=== PATIENT | male | born 1960 | race African-American/Black ===

== ENCOUNTER 2016-03-30 15:27 | Inpatient (IN) | payer MEDICARE, MEDICAID ==
[~2016-03-30] VITALS: Ht 162.6 cm; Wt 66.7 kg
[~2016-03-30 15:27] MED LIST: CYCL7.5T25 PO; FOLI0.8T; INSLAN SQ; INSLIS SQ; METF500T PO; abilify; insulin
[2016-03-30] MEDS ORDERED: SODIUM CHLORIDE 0.9% 1,000 ML IV ONE (17:01)
[2016-03-30] MEDS ORDERED: KETOROLAC 30MG/ML VIAL IV ONE (17:15)
[2016-03-30 17:18] LABS: BASOPHILS % 0.4 % (0.0-2.0); EOSINOPHILS % 4.3 % (0.0-5.0); HEMATOCRIT. 25.8 % (42.0-52.0); LYMPHOCYTES % 17.8 % (20.0-50.0); MEAN CORPUSCULAR HGB CONC 34.9 g/dL (31.0-37.0); MEAN CORPUSCULAR VOLUME 83.3 fL (80.0-94.0); MEAN PLATELET VOLUME 8.8 fl (7.4-10.4); MONOCYTES % 7.9 % (2.0-8.0); NEUTROPHILS % 69.6 % (40.0-76.0); PLATELET 92 x1000/uL (130-400); RED CELL DISTRIBUTION WIDTH 14.6 % (11.6-14.6); WHITE BLOOD COUNT 4.8 x1000/uL (4.5-11.0)
[2016-03-30 17:23] LABS: CHLORIDE 102 mEq/L (98-107); INDEX HEMOLYSI 1 (1-3); INDEX ICTERIC 1 (1-4); INDEX LIPEMIC 1 (1-3)
[2016-03-30 17:27] LABS: ALBUMIN 3.4 g/dL (3.4-5.0); ANION GAP 10; CALCIUM 8.2 mg/dL (8.5-10.1); CARBON DIOXIDE 30 mEq/L (21-32); INR 1.1; UREA NITROGEN BLOOD 22 mg/dL (7-21)
[2016-03-30 17:31] LABS: ALANINE AMINOTRANSFERASE 21 IU/L (13-61); BETA HYDROXYBUTYRATE 0.1 mMol/L (0.0-0.3); eGFR 45 mL/min (>60)
[2016-03-30 17:33] LABS: NT PRO B-TYPE NATRIURETIC PEP 34 pg/mL (5-125); TROPONIN I < 0.02 ng/mL (0.00-0.04)
[2016-03-30] MEDS ORDERED: INSULIN REGULAR (HUMULIN R) 300UNITS/3ML IV ONE (18:30)
[2016-03-30] MEDS ORDERED: ASPIRIN 81MG TABLET PO ONE (18:30)
[2016-03-30] MEDS ORDERED: HYDROCODONE/ACETAMINOPHEN 5/325MG TABLET PO ONE (19:15)
[2016-03-30 23:05] VITALS: BP 127/82
[2016-03-31] VITALS: BP 127/82
[2016-03-31] MEDS ORDERED: DEXTROSE 50% WATER 50ML SYRINGE IV PRN (00:15)
[2016-03-31] MEDS ORDERED: ZOLPIDEM TARTRATE 5MG TABLET PO PRN (00:15)
[2016-03-31] MEDS ORDERED: ONDANSETRON HCL 4MG/2ML VIAL IV PRN (00:15)
[2016-03-31] MEDS ORDERED: NAPR-681 PO (00:43)
[2016-03-31] MEDS ORDERED: LOSA25TA12 PO (00:43)
[2016-03-31] MEDS ORDERED: GABA-531 PO (00:43)
[2016-03-31] MEDS ORDERED: CYCLOBENZAPRINE 10MG TABLET PO PRN (00:45)
[2016-03-31] MEDS ORDERED: TRAM50TA3 PO (00:47)
[2016-03-31] MEDS ORDERED: LEVEMIR SQ (00:47)
[2016-03-31] MEDS: HYDROCODONE/ACETAMINOPHEN 5/325MG TABLET PO PRN ×5 (01:06→21:52)
[2016-03-31] MEDS: SODIUM CHLORIDE 0.9% 1,000 ML IV SCH ×2 (01:06→16:50)
[2016-03-31 04:00] VITALS: BP_SYST 100; BP_SYST 113; BP_SYST 136; BP_DIAS 71; BP_DIAS 73; BP_DIAS 80
[2016-03-31 04:19] LABS: *AMPHETAMINES SCREEN URINE NEGATIVE (NEGATIVE); CANNABINOID URINE SCREEN NEGATIVE (NEGATIVE); ECSTASY MDMA SCREEN URINE NEGATIVE (NEGATIVE); METHADONE URINE SCREEN NEGATIVE (NEGATIVE); OPIATES URINE SCREEN PRESUMTIVE POSITIVE (NEGATIVE)
[2016-03-31] MEDS: BLOOD SUGAR DIAGNOSTIC STRIP TEST SCH ×4 (06:13→21:50)
[2016-03-31 06:23] LABS: ANION GAP 10; CALCIUM 7.7 mg/dL (8.5-10.1); CARBON DIOXIDE 27 mEq/L (21-32); CHLORIDE 108 mEq/L (98-107); ETHANOL BLOOD < 10 mg/dL; HDL CHOLESTEROL 43 mg/dL (40-59); INDEX HEMOLYSI 1 (1-3); INDEX ICTERIC 1 (1-4); INDEX LIPEMIC 1 (1-3); LDL CHOLESTEROL 35 mg/dL (5-100); TRIGLYCERIDE 78 mg/dL (0-150); UREA NITROGEN BLOOD 25 mg/dL (7-21); eGFR 48 mL/min (>60)
[2016-03-31 06:24] LABS: TROPONIN I < 0.02 ng/mL (0.00-0.04)
[2016-03-31 06:38] LABS: BASOPHILS % 0.3 % (0.0-2.0); EOSINOPHILS % 4.8 % (0.0-5.0); HEMATOCRIT. 23.2 % (42.0-52.0); HEMOGLOBIN. 8.1 g/dL (14.0-18.0); LYMPHOCYTES % 25.3 % (20.0-50.0); MEAN CORPUSCULAR HEMOGLOBIN 29.1 pg (28.0-32.0); MEAN CORPUSCULAR HGB CONC 34.8 g/dL (31.0-37.0); MEAN CORPUSCULAR VOLUME 83.7 fL (80.0-94.0); MEAN PLATELET VOLUME 9.3 fl (7.4-10.4); MONOCYTES % 8.2 % (2.0-8.0); NEUTROPHILS % 61.4 % (40.0-76.0); PLATELET 74 x1000/uL (130-400); RED BLOOD CELL COUNT 2.77 mill/uL (4.7-6.1); RED CELL DISTRIBUTION WIDTH 14.4 % (11.6-14.6); WHITE BLOOD COUNT 4.1 x1000/uL (4.5-11.0)
[2016-03-31 06:40] LABS: *BARBITURATES SCREEN URINE NEGATIVE (NEGATIVE); *BENZODIAZEPINES SCREEN URINE NEGATIVE (NEGATIVE); *COCAINE SCREEN URINE PRESUMTIVE POSITIVE (NEGATIVE); PHENCYCLIDINE URINE SCREEN NEGATIVE (NEGATIVE)
[2016-03-31] MEDS ORDERED: OMEPRAZOLE 20MG CAPSULE EXTENDED RELEASE PO SCH (07:40)
[2016-03-31 07:58] VITALS: BP 135/88
[2016-03-31] MEDS: INSULIN LISPRO 100 UNITS/ML SUBCUT SCH ×4 (08:55→21:00)
[2016-03-31] MEDS: LOSARTAN POTASSIUM 25 MG TABLET PO SCH (08:58)
[2016-03-31] MEDS: GABAPENTIN 300MG CAPSULE PO SCH (09:00)
[2016-03-31] MEDS: INSULIN DETEMIR UD 100 UNITS/ML SYR SUBCUT SCH ×2 (10:38→22:00)
[2016-03-31 12:00] VITALS: BP 119/83
[2016-03-31 16:00] VITALS: BP 126/93
[2016-03-31 20:00] VITALS: BP 128/89
[2016-04-01] VITALS (14 sets, daily range): BP systolic 108–159; BP diastolic 71–97
[2016-04-01 05:21] LABS: BASOPHILS % 0.3 % (0.0-2.0); EOSINOPHILS % 5.3 % (0.0-5.0); HEMATOCRIT. 22.9 % (42.0-52.0); HEMOGLOBIN. 7.9 g/dL (14.0-18.0); LYMPHOCYTES % 22.7 % (20.0-50.0); MEAN CORPUSCULAR HEMOGLOBIN 28.5 pg (28.0-32.0); MEAN CORPUSCULAR HGB CONC 34.3 g/dL (31.0-37.0); MEAN CORPUSCULAR VOLUME 83.3 fL (80.0-94.0); MONOCYTES % 6.8 % (2.0-8.0); NEUTROPHILS % 64.9 % (40.0-76.0); PLATELET 75 x1000/uL (130-400); RED BLOOD CELL COUNT 2.75 mill/uL (4.7-6.1); RED CELL DISTRIBUTION WIDTH 14.8 % (11.6-14.6); WHITE BLOOD COUNT 4.2 x1000/uL (4.5-11.0)
[2016-04-01] MEDS: HYDROCODONE/ACETAMINOPHEN 5/325MG TABLET PO PRN ×3 (05:24→20:47)
[2016-04-01] MEDS: BLOOD SUGAR DIAGNOSTIC STRIP TEST SCH ×4 (06:48→20:45)
[2016-04-01 07:08] LABS: ANION GAP 10; CALCIUM 8.4 mg/dL (8.5-10.1); CARBON DIOXIDE 26 mEq/L (21-32); CHLORIDE 109 mEq/L (98-107); INDEX HEMOLYSI 1 (1-3); INDEX ICTERIC 1 (1-4); INDEX LIPEMIC 1 (1-3); UREA NITROGEN BLOOD 19 mg/dL (7-21); eGFR > 60 mL/min (>60)
[2016-04-01] MEDS: ACETAMINOPHEN 325MG TABLET PO PRN (08:11)
[2016-04-01] MEDS: LOSARTAN POTASSIUM 25 MG TABLET PO SCH (08:22)
[2016-04-01] MEDS: INSULIN LISPRO 100 UNITS/ML SUBCUT SCH ×4 (08:22→20:46)
[2016-04-01] MEDS: GABAPENTIN 300MG CAPSULE PO SCH (08:22)
[2016-04-01] MEDS: SODIUM CHLORIDE 0.9% 1,000 ML IV SCH (09:31)
[2016-04-01] MEDS: OMEPRAZOLE 20MG CAPSULE EXTENDED RELEASE PO SCH (09:31)
[2016-04-01] MEDS: INSULIN DETEMIR UD 100 UNITS/ML SYR SUBCUT SCH ×2 (10:44→21:36)
[2016-04-02] VITALS: BP 122/89
[2016-04-02 04:00] VITALS: BP_SYST 124; BP_SYST 145; BP_SYST 160; BP_DIAS 86; BP_DIAS 89; BP_DIAS 93
[2016-04-02] MEDS: HYDROCODONE/ACETAMINOPHEN 5/325MG TABLET PO PRN ×2 (04:37→15:47)
[2016-04-02] MEDS: SODIUM CHLORIDE 0.9% 1,000 ML IV SCH (04:38)
[2016-04-02 06:38] LABS: BASOPHILS % 0.2 % (0.0-2.0); EOSINOPHILS % 4.2 % (0.0-5.0); HEMATOCRIT. 29.6 % (42.0-52.0); HEMOGLOBIN. 10.3 g/dL (14.0-18.0); MEAN CORPUSCULAR HEMOGLOBIN 29.1 pg (28.0-32.0); MEAN CORPUSCULAR HGB CONC 34.8 g/dL (31.0-37.0); MEAN CORPUSCULAR VOLUME 83.7 fL (80.0-94.0); MEAN PLATELET VOLUME 9.2 fl (7.4-10.4); MONOCYTES % 8.9 % (2.0-8.0); NEUTROPHILS % 68.7 % (40.0-76.0); PLATELET 81 x1000/uL (130-400); RED BLOOD CELL COUNT 3.53 mill/uL (4.7-6.1); RED CELL DISTRIBUTION WIDTH 15.2 % (11.6-14.6); WHITE BLOOD COUNT 5.3 x1000/uL (4.5-11.0)
[2016-04-02 07:17] LABS: ANION GAP 12; CALCIUM 8.3 mg/dL (8.5-10.1); CARBON DIOXIDE 26 mEq/L (21-32); CHLORIDE 107 mEq/L (98-107); INDEX HEMOLYSI 1 (1-3); INDEX ICTERIC 2 (1-4); INDEX LIPEMIC 1 (1-3); UREA NITROGEN BLOOD 17 mg/dL (7-21)
[2016-04-02 07:21] LABS: eGFR > 60 mL/min (>60)
[2016-04-02] MEDS: OMEPRAZOLE 20MG CAPSULE EXTENDED RELEASE PO SCH (07:50)
[2016-04-02] MEDS: BLOOD SUGAR DIAGNOSTIC STRIP TEST SCH ×2 (07:50→12:52)
[2016-04-02] MEDS: ACETAMINOPHEN 325MG TABLET PO PRN (07:58)
[2016-04-02] MEDS: INSULIN LISPRO 100 UNITS/ML SUBCUT SCH ×2 (07:59→13:15)
[2016-04-02 08:00] VITALS: BP 134/87
[2016-04-02] MEDS: LOSARTAN POTASSIUM 25 MG TABLET PO SCH (08:40)
[2016-04-02] MEDS: GABAPENTIN 300MG CAPSULE PO SCH (08:40)
[2016-04-02] MEDS: INSULIN DETEMIR UD 100 UNITS/ML SYR SUBCUT SCH (10:26)
[2016-04-02 12:00] VITALS: BP 138/88
[2016-04-02 16:00] VITALS: BP 121/84
[2016-04-02 16:52] VITALS: BP 121/84
== END 2016-04-02 18:00 | disposition home or self-care (01) | DRG 638 ==
LOC: ER 17:21 → 7WST 18:29
PROVIDERS: ADMIT Family Medicine Adult Medicine; ATTEND Family Medicine Adult Medicine
PROC: 30233N1 Transfusion of Nonautologous Red Blood Cells into Peripheral Vein, Percutaneous Approach (ICD-10-PCS; principal; 2016-04-01)
DX: E11.65 Type 2 diabetes mellitus with hyperglycemia (principal); N17.9 Acute kidney failure, unspecified; D64.9 Anemia, unspecified; F17.210 Nicotine dependence, cigarettes, uncomplicated; E11.42 Type 2 diabetes mellitus with diabetic polyneuropathy; N40.0 Benign prostatic hyperplasia without lower urinary tract symptoms; I12.9 Hypertensive chronic kidney disease with stage 1 through stage 4 chronic kidney disease, or unspecified chronic kidney disease; E11.22 Type 2 diabetes mellitus with diabetic chronic kidney disease; G89.29 Other chronic pain; R07.89 Other chest pain; N18.3 Chronic kidney disease, stage 3 (moderate); Z79.899 Other long term (current) drug therapy; F19.10 Other psychoactive substance abuse, uncomplicated; Z90.49 Acquired absence of other specified parts of digestive tract; Z79.4 Long term (current) use of insulin; Z91.19 Patient's noncompliance with other medical treatment and regimen
CPT/HCPCS: 36415; 71010; 80048; 80053; 80061; 80305; 82010; 82962; 83036; 83880; 84443; 84484; 85025; 85610; 86850; 86900; 86920; 93005; 93306; 93880; 96361; 96374; 96375; 99291; G0482; J1815; J1885; J7030; J7040; J7050; P9016

== ENCOUNTER 2018-01-22 17:09 | Inpatient (IN) | payer MEDICARE, MEDICAID ==
[~2018-01-22] VITALS: Ht 162.6 cm; Wt 64.0 kg
[~2018-01-22 17:09] MED LIST changes: -FOLI0.8T; +GABA-531 PO; -INSLAN SQ; -INSLIS SQ; +LEVEMIR SQ; +LOSA25TA12 PO; -METF500T PO; +NAPR-681 PO; +TRAM50TA3 PO; -abilify; -insulin
[2018-01-22] MEDS ORDERED: SODIUM CHLORIDE 0.9% 1,000 ML IV ONE (19:16)
[2018-01-22 20:21] LABS: BASOPHILS % 0.5 % (0.0-2.0); EOSINOPHILS % 1.4 % (0.0-5.0); HEMATOCRIT. 21.6 % (42.0-52.0); HEMOGLOBIN. 7.5 g/dL (14.0-18.0); LYMPHOCYTES % 25.2 % (20.0-50.0); MEAN CORPUSCULAR HEMOGLOBIN 30.1 pg (28.0-32.0); MEAN CORPUSCULAR VOLUME 86.8 fL (80.0-94.0); MEAN PLATELET VOLUME 8.4 fl (7.4-10.4); MONOCYTES % 6.7 % (2.0-8.0); NEUTROPHILS % 66.2 % (40.0-76.0); PLATELET 105 x1000/uL (130-400); RED BLOOD CELL COUNT 2.49 mill/uL (4.7-6.1); RED CELL DISTRIBUTION WIDTH 13.9 % (11.6-14.6)
[2018-01-22 20:23] LABS: CHLORIDE 111 mEq/L (98-107)
[2018-01-22 20:28] LABS: PARTIAL THROMBOPLASTIN TIME 27.3 sec (23.4-31.0); PROTHROMBIN TIME 10.5 sec (9.1-11.1)
[2018-01-22] MEDS ORDERED: LOSARTAN POTASSIUM 25 MG TABLET PO ONE (20:45)
[2018-01-22] MEDS ORDERED: DOXYCYCLINE HYCLATE 100MG CAPSULE PO ONE (20:45)
[2018-01-22] MEDS ORDERED: CEFTRIAXONE SODIUM 250 MG/VIAL IM ONE (20:45)
[2018-01-22] MEDS ORDERED: NIFEDIPINE 10MG CAPSULE PO ONE (20:45)
[2018-01-22 21:09] LABS: CLARITY URINE CLEAR (CLEAR); COLOR URINE YELLOW (YELLOW); KETONES URINE NEGATIVE (NEGATIVE); LEUKOCYTE ESTERASE URINE NEGATIVE (NEGATIVE); NITRITE URINE NEGATIVE (NEGATIVE); OCCULT BLOOD URINE TRACE (NEGATIVE); PROTEIN URINE 3+ (NEGATIVE); SPECIFIC GRAVITY URINE 1.014 (1.005-1.030)
[2018-01-22 21:47] LABS: *AMPHETAMINES SCREEN URINE NEGATIVE (NEGATIVE)
[2018-01-22 21:48] LABS: *BARBITURATES SCREEN URINE NEGATIVE (NEGATIVE); *BENZODIAZEPINES SCREEN URINE NEGATIVE (NEGATIVE); *COCAINE SCREEN URINE PRESUMTIVE POSITIVE (NEGATIVE); METHADONE URINE SCREEN NEGATIVE (NEGATIVE)
[2018-01-22 21:49] LABS: CANNABINOID URINE SCREEN NEGATIVE (NEGATIVE); OPIATES URINE SCREEN NEGATIVE (NEGATIVE); PHENCYCLIDINE URINE SCREEN NEGATIVE (NEGATIVE)
[2018-01-23] VITALS (9 sets, daily range): BP systolic 142–177; BP diastolic 59–84
[2018-01-23] MEDS: ACETAMINOPHEN 325MG TABLET PO PRN ×3 (02:40→21:39)
[2018-01-23] MEDS ORDERED: DEXTROSE 50% WATER 50ML SYRINGE IV PRN (03:30)
[2018-01-23] MEDS ORDERED: MAGNESIUM/ALUMINUM HYDROXIDE/SIMETHICONE 30ML UDC PO PRN (03:30)
[2018-01-23] MEDS ORDERED: ONDANSETRON HCL 4MG/2ML INJ IV PRN (03:30)
[2018-01-23] MEDS ORDERED: DOCUSATE SODIUM 100MG CAPSULE PO PRN (03:30)
[2018-01-23] MEDS ORDERED: IRON-16 PO (03:44)
[2018-01-23] MEDS ORDERED: PRO1 PO (03:44)
[2018-01-23] MEDS ORDERED: INSU100V3 SUBCUT (03:44)
[2018-01-23] MEDS: PANTOPRAZOLE SODIUM 40 MG/VIAL IV SCH ×2 (05:05→09:48)
[2018-01-23] MEDS: CLONIDINE 0.1MG TABLET PO PRN ×2 (05:50→18:35)
[2018-01-23] MEDS: BLOOD SUGAR DIAGNOSTIC STRIP TEST SCH ×4 (06:08→21:16)
[2018-01-23] MEDS ORDERED: CARVEDILOL 3.125 MG TABLET PO SCH ×2 (06:45→09:00)
[2018-01-23] MEDS ORDERED: HYDROMORPHONE HCL/PF 2MG/ML CPJ IV SCH (06:45)
[2018-01-23 08:21] LABS: TOTAL IRON BINDING CAPACITY 141 ug/dL (250-450)
[2018-01-23] MEDS: FERROUS SULFATE 325MG TABLET PO SCH (09:48)
[2018-01-23] MEDS: INSULIN LISPRO 100 UNITS/ML SUBCUT SCH ×4 (09:55→21:00)
[2018-01-23] MEDS ORDERED: INFLUENZA VIRUS VACCINE(AFLURIA) 0.5ML SYR IM ONE (10:00)
[2018-01-23] MEDS: HYDRALAZINE HCL 25MG TABLET PO SCH ×2 (13:42→21:13)
[2018-01-23] MEDS: AMLODIPINE 5MG TABLET PO SCH ×2 (13:42→21:13)
[2018-01-23] MEDS: THIAMINE HCL 100MG TABLET PO SCH (13:43)
[2018-01-23] MEDS: FOLIC ACID 1MG TABLET PO SCH (13:43)
[2018-01-23] MEDS: MULTIVITAMINS,THER W-MINERALS TABLET PO SCH (13:43)
[2018-01-23] MEDS: DOXYCYCLINE 100 MG in DEXT 5% WATER 100 ML IV SCH ×2 (13:44→21:12)
[2018-01-23] MEDS: SODIUM CHLORIDE 0.45% 1,000 ML IV SCH ×2 (13:44→23:25)
[2018-01-23] MEDS ORDERED: METOCLOPRAMIDE HCL 10MG/2ML VIAL IV SCH (14:15)
[2018-01-23 17:45] LABS: HEMATOCRIT 26.6 % (42.0-52.0)
[2018-01-23 18:03] LABS: ETHANOL BLOOD < 10 mg/dL
[2018-01-23 18:04] LABS: CREATINE KINASE 191 IU/L (39-308)
[2018-01-23 18:18] LABS: FOLIC ACID (FOLATE) SERUM >20 ng/mL ng/mL (>5.38)
[2018-01-23 18:29] LABS: VITAMIN B12 SERUM 759 pg/mL (211-911)
[2018-01-23 18:31] LABS: FERRITIN 761 ng/mL (22-322)
[2018-01-23] MEDS ORDERED: ZOLPIDEM TARTRATE 5MG TABLET PO PRN (21:00)
[2018-01-23] MEDS: ATORVASTATIN CALCIUM 10MG TABLET PO SCH (21:13)
[2018-01-23] MEDS: INSULIN GLARGINE UD 100 UNITS/ML SYR SUBCUT SCH (21:52)
[2018-01-23] MEDS ORDERED: INSULIN GLARGINE UD 100 UNITS/ML SYR SUBCUT SCH (22:00)
[2018-01-23 23:57] LABS: HEMATOCRIT 26.8 % (42.0-52.0)
[2018-01-24] VITALS (12 sets, daily range): BP systolic 129–187; BP diastolic 9–88
[2018-01-24] MEDS: HYDRALAZINE HCL 25MG TABLET PO SCH ×3 (05:57→21:20)
[2018-01-24] MEDS: BLOOD SUGAR DIAGNOSTIC STRIP TEST SCH ×4 (06:24→20:30)
[2018-01-24] MEDS: INSULIN LISPRO 100 UNITS/ML SUBCUT SCH ×4 (07:50→20:30)
[2018-01-24] MEDS: PANTOPRAZOLE SODIUM 40 MG/VIAL IV SCH (08:48)
[2018-01-24] MEDS: DOXYCYCLINE 100 MG in DEXT 5% WATER 100 ML IV SCH (08:48)
[2018-01-24] MEDS: FERROUS SULFATE 325MG TABLET PO SCH (09:00)
[2018-01-24] MEDS: MULTIVITAMINS,THER W-MINERALS TABLET PO SCH (09:00)
[2018-01-24] MEDS: AMLODIPINE 5MG TABLET PO SCH ×2 (09:00→20:19)
[2018-01-24] MEDS: FOLIC ACID 1MG TABLET PO SCH (09:00)
[2018-01-24] MEDS: THIAMINE HCL 100MG TABLET PO SCH (09:00)
[2018-01-24] MEDS: SODIUM CHLORIDE 0.45% 1,000 ML IV SCH (09:00)
[2018-01-24 09:38] LABS: BASOPHILS % 0.3 % (0.0-2.0); EOSINOPHILS % 4.2 % (0.0-5.0); HEMATOCRIT. 22.6 % (42.0-52.0); HEMOGLOBIN. 7.8 g/dL (14.0-18.0); LYMPHOCYTES % 27.3 % (20.0-50.0); MEAN CORPUSCULAR HEMOGLOBIN 29.9 pg (28.0-32.0); MEAN CORPUSCULAR VOLUME 87.3 fL (80.0-94.0); MEAN PLATELET VOLUME 7.9 fl (7.4-10.4); MONOCYTES % 8.6 % (2.0-8.0); NEUTROPHILS % 59.6 % (40.0-76.0); PLATELET 85 x1000/uL (130-400); RED BLOOD CELL COUNT 2.59 mill/uL (4.7-6.1); RED CELL DISTRIBUTION WIDTH 13.7 % (11.6-14.6)
[2018-01-24 09:46] LABS: INR 1.1; PARTIAL THROMBOPLASTIN TIME 28.9 sec (23.4-31.0); PROTHROMBIN TIME 10.8 sec (9.1-11.1)
[2018-01-24 09:57] LABS: PHOSPHORUS 3.8 mg/dL (2.5-4.9)
[2018-01-24] MEDS: ACETAMINOPHEN 325MG TABLET PO PRN ×2 (13:26→23:10)
[2018-01-24] MEDS: TAMSULOSIN HCL 0.4MG SR CAPSULE PO SCH (13:29)
[2018-01-24] MEDS ORDERED: MAGNESIUM 1 G PREMIX 100 ML IV SCH (16:00)
[2018-01-24] MEDS: ATORVASTATIN CALCIUM 10MG TABLET PO SCH (20:19)
[2018-01-24] MEDS: INSULIN GLARGINE UD 100 UNITS/ML SYR SUBCUT SCH ×2 (21:35→22:00)
[2018-01-24 23:53] LABS: HEMOGLOBIN 10.1 g/dL (14.0-18.0); MEAN CORPUSCULAR HEMOGLOBIN 30.4 pg (28.0-32.0); MEAN CORPUSCULAR VOLUME 86.9 fL (80.0-94.0); PLATELET 82 x1000/uL (130-400); RED BLOOD CELL COUNT 3.33 mill/uL (4.7-6.1); RED CELL DISTRIBUTION WIDTH 13.9 % (11.6-14.6)
[2018-01-25] VITALS (7 sets, daily range): BP systolic 121–173; BP diastolic 72–85
[2018-01-25 00:03] LABS: PROTHROMBIN TIME 10.4 sec (9.1-11.1)
[2018-01-25] MEDS: SODIUM CHLORIDE 0.45% 1,000 ML IV SCH ×2 (04:57→12:39)
[2018-01-25] MEDS: ACETAMINOPHEN 325MG TABLET PO PRN ×2 (05:00→18:27)
[2018-01-25] MEDS: HYDRALAZINE HCL 25MG TABLET PO SCH ×2 (06:20→06:22)
[2018-01-25] MEDS: BLOOD SUGAR DIAGNOSTIC STRIP TEST SCH ×3 (06:23→17:20)
[2018-01-25 07:47] LABS: BASOPHILS % 0.5 % (0.0-2.0); EOSINOPHILS % 4.6 % (0.0-5.0); HEMATOCRIT. 27.9 % (42.0-52.0); HEMOGLOBIN. 9.7 g/dL (14.0-18.0); LYMPHOCYTES % 22.4 % (20.0-50.0); MEAN CORPUSCULAR HEMOGLOBIN 30.1 pg (28.0-32.0); MEAN PLATELET VOLUME 8.1 fl (7.4-10.4); MONOCYTES % 8.6 % (2.0-8.0); NEUTROPHILS % 63.9 % (40.0-76.0); PLATELET 83 x1000/uL (130-400); RED BLOOD CELL COUNT 3.21 mill/uL (4.7-6.1); RED CELL DISTRIBUTION WIDTH 13.9 % (11.6-14.6)
[2018-01-25] MEDS: INSULIN LISPRO 100 UNITS/ML SUBCUT SCH ×3 (07:50→17:50)
[2018-01-25] MEDS: PANTOPRAZOLE SODIUM 40 MG/VIAL IV SCH (08:40)
[2018-01-25] MEDS ORDERED: HYDRALAZINE 20MG/ML VIAL IV NR (09:00)
[2018-01-25] MEDS: AMLODIPINE 5MG TABLET PO SCH (09:00)
[2018-01-25] MEDS: TAMSULOSIN HCL 0.4MG SR CAPSULE PO SCH (09:00)
[2018-01-25] MEDS: MULTIVITAMINS,THER W-MINERALS TABLET PO SCH (09:00)
[2018-01-25] MEDS: THIAMINE HCL 100MG TABLET PO SCH (09:00)
[2018-01-25] MEDS: FERROUS SULFATE 325MG TABLET PO SCH (09:00)
[2018-01-25] MEDS: FOLIC ACID 1MG TABLET PO SCH (09:00)
[2018-01-25 09:11] LABS: A/G RATIO 1.7 (0.7-1.7); ALBUMIN 3.6 g/dL (2.9-4.4); ALPHA-1-GLOBULIN 0.2 g/dL (0.0-0.4); ALPHA-2-GLOBULIN 0.4 g/dL (0.4-1.0); BETA GLOBULIN 0.7 g/dL (0.7-1.3); GAMMA GLOBULINS 0.9 g/dL (0.4-1.8); GLOBULIN TOTAL 2.1 g/dL (2.2-3.9); M-SPIKE 0.2 g/dL (Not Observed); TOTAL PROTEIN SERUM 5.7 g/dL (6.0-8.5)
[2018-01-25] MEDS ORDERED: HYDRALAZINE 20MG/ML VIAL IV PRN (09:15)
[2018-01-25] MEDS ORDERED: MIDAZOLAM HCL 2 MG/2 ML VIAL IV PRN (11:12)
[2018-01-25] MEDS ORDERED: FENTANYL CITRATE/PF 50MCG/ML 2ML VIAL IV PRN (11:13)
[2018-01-25] MEDS ORDERED: FENTANYL CITRATE/PF 50MCG/ML 2ML VIAL ONE (11:18)
[2018-01-25] MEDS ORDERED: MIDAZOLAM HCL 5 MG/5 ML VIAL ONE (11:18)
[2018-01-25] MEDS ORDERED: HYDRALAZINE HCL 50MG TABLET PO SCH (14:00)
[2018-01-25] MEDS ORDERED: SODIUM CHLORIDE 0.9% 10ML VIAL ONE (14:41)
[2018-01-25] MEDS ORDERED: SIMETHICONE 40 MG/0.6 ML 30ML ONE (14:41)
[2018-01-25 15:09] LABS: ANTI-NUCLEAR ANTIBODIES DIRECT Negative (Negative)
[2018-01-26 06:17] LABS: COMPLEMENT C3 94 mg/dL (82-167)
== END 2018-01-25 22:20 | disposition home or self-care (01) | DRG 811 ==
LOC: ER 17:09 → 6WST 23:41 → EDBEDREQTM 23:51 → EDBEDREQ 23:51 → ENRESERV 01-23 01:16
PROVIDERS: ADMIT Family Medicine Adult Medicine; ATTEND Family Medicine Adult Medicine
PROC: 30233N1 Transfusion of Nonautologous Red Blood Cells into Peripheral Vein, Percutaneous Approach (ICD-10-PCS; 2018-01-23)
PROC: 0DB78ZX Excision of Stomach, Pylorus, Via Natural or Artificial Opening Endoscopic, Diagnostic (ICD-10-PCS; 2018-01-25)
PROC: 4A00X4Z Measurement of Central Nervous Electrical Activity, External Approach (ICD-10-PCS; principal; 2018-01-25 10:00)
DX: D50.9 Iron deficiency anemia, unspecified (principal); N17.0 Acute kidney failure with tubular necrosis; D61.818 Other pancytopenia; R17 Unspecified jaundice; E44.0 Moderate protein-calorie malnutrition; E11.43 Type 2 diabetes mellitus with diabetic autonomic (poly)neuropathy; E11.22 Type 2 diabetes mellitus with diabetic chronic kidney disease; E78.00 Pure hypercholesterolemia, unspecified; R07.89 Other chest pain; E86.9 Volume depletion, unspecified; F14.10 Cocaine abuse, uncomplicated; N18.9 Chronic kidney disease, unspecified; K31.84 Gastroparesis; K29.60 Other gastritis without bleeding; N40.1 Benign prostatic hyperplasia with lower urinary tract symptoms; F17.210 Nicotine dependence, cigarettes, uncomplicated; I12.9 Hypertensive chronic kidney disease with stage 1 through stage 4 chronic kidney disease, or unspecified chronic kidney disease; N28.1 Cyst of kidney, acquired; Z79.4 Long term (current) use of insulin; Z82.49 Family history of ischemic heart disease and other diseases of the circulatory system; Z87.19 Personal history of other diseases of the digestive system; Z90.49 Acquired absence of other specified parts of digestive tract; Z68.24 Body mass index [BMI] 24.0-24.9, adult; Z79.899 Other long term (current) drug therapy
CPT/HCPCS: 36415; 70544; 70553; 71045; 74018; 74176; 76700; 80048; 80076; 80305; 82140; 82270; 82550; 82607; 82728; 82746; 82962; 83036; 83540; 83550; 83735; 83880; 84100; 84155; 84165; 84439; 84443; 84481; 84484; 85014; 85018; 85027; 85384; 86038; 86160; 86850; 86900; 86920; 88305; 88312; 88313; 90686; 93005; 93306; 93880; 96360; 96361; 96372; 97162; 97166; 99285; A4216; C9113; G0482; J0360; J0696; J1170; J1815; J2250; J2405; J3010; J3475; J3490; J7030; J7040; J7050; J7060; P9016

== ENCOUNTER 2018-10-29 12:38 | Inpatient (IN) | payer MEDICARE, MEDICAID ==
[~2018-10-29] VITALS: Ht 167.6 cm; Wt 68.0 kg
[~2018-10-29 12:38] MED LIST changes: -CYCL7.5T25 PO; -GABA-531 PO; +INSU100V3 SUBCUT; -LEVEMIR SQ; -LOSA25TA12 PO; -NAPR-681 PO; -TRAM50TA3 PO
[2018-10-29] MEDS ORDERED: CEFTRIAXONE SODIUM 1 G/VIAL IM ONE (15:00)
[2018-10-29] MEDS ORDERED: KETOROLAC 30MG/ML VIAL IV ONE (15:00)
[2018-10-29] MEDS ORDERED: CLINDAMYCIN 300 MG in DEXTROSE 5% WATER 50 ML IV ONE (15:00)
[2018-10-29] MEDS ORDERED: MORPHINE SULFATE 4 MG/ML CPJ (NOT FOR IM USE) IV ONE (15:00)
[2018-10-29 15:17] LABS: RED BLOOD CELL COUNT 2.09 mill/uL (4.7-6.1)
[2018-10-29 15:19] LABS: HEMATOCRIT. 17.6 % (42.0-52.0); HEMOGLOBIN. 5.9 g/dL (14.0-18.0); MEAN CORPUSCULAR HEMOGLOBIN 28.4 pg (28.0-32.0); MEAN CORPUSCULAR VOLUME 84.2 fL (80.0-94.0); PLATELET 139 x1000/uL (130-400); RED CELL DISTRIBUTION WIDTH 14.2 % (11.6-14.6)
[2018-10-29 15:20] LABS: BASOPHILS % 0.2 % (0.0-2.0); EOSINOPHILS % 3.4 % (0.0-5.0); LYMPHOCYTES % 18.3 % (20.0-50.0); MEAN PLATELET VOLUME 8.8 fl (7.4-10.4); MONOCYTES % 6.9 % (2.0-8.0); NEUTROPHILS % 71.2 % (40.0-76.0)
[2018-10-29] MEDS ORDERED: DOCUSATE SODIUM 100MG CAPSULE PO PRN (20:15)
[2018-10-29] MEDS ORDERED: IPRATROPIUM/ALBUTEROL 0.5-3(2.5)MG/3ML NEB HHN PRN (20:15)
[2018-10-29] MEDS ORDERED: DEXTROSE 50% WATER 50ML SYRINGE IV PRN ×2 (20:15)
[2018-10-29] MEDS ORDERED: ONDANSETRON HCL 4MG/2ML INJ IV PRN (20:15)
[2018-10-29] MEDS ORDERED: MAGNESIUM/ALUMINUM HYDROXIDE/SIMETHICONE 30ML UDC PO PRN (20:15)
[2018-10-29] MEDS: HYDROCODONE/ACETAMINOPHEN 5/325MG TABLET PO PRN (20:35)
[2018-10-29] MEDS: CLONIDINE 0.1MG TABLET PO PRN (20:53)
[2018-10-30] MEDS ORDERED: CEPHALEXIN 250 MG/5 ML 100ML PO SCH
[2018-10-30] MEDS: ACETAMINOPHEN 325MG TABLET PO PRN (00:56)
[2018-10-30 04:00] VITALS: BP 140/76
[2018-10-30] MEDS ORDERED: FERR236T3 MT (04:49)
[2018-10-30] MEDS ORDERED: LOSA1TAB40 MT (04:50)
[2018-10-30 04:57] VITALS: BP 147/57
[2018-10-30] MEDS: CEPHALEXIN 250MG CAPSULE PO SCH ×3 (05:59→22:49)
[2018-10-30] MEDS: BLOOD SUGAR DIAGNOSTIC STRIP TEST SCH ×4 (07:40→21:00)
[2018-10-30 08:00] VITALS: BP 176/84
[2018-10-30] MEDS: INSULIN LISPRO 100 UNITS/ML SUBCUT SCH ×4 (08:10→21:00)
[2018-10-30] MEDS ORDERED: ENOXAPARIN 30MG/0.3ML SYR SUBCUT SCH (09:00)
[2018-10-30 10:14] LABS: HEMATOCRIT. 21.2 % (42.0-52.0); HEMOGLOBIN. 7.1 g/dL (14.0-18.0); MEAN CORPUSCULAR HEMOGLOBIN 28.2 pg (28.0-32.0); MEAN CORPUSCULAR VOLUME 84.7 fL (80.0-94.0); MEAN PLATELET VOLUME 8.5 fl (7.4-10.4); PLATELET 125 x1000/uL (130-400)
[2018-10-30 10:32] LABS: PHOSPHORUS 3.7 mg/dL (2.5-4.9)
[2018-10-30 12:00] VITALS: BP 117/78
[2018-10-30] MEDS ORDERED: LIDOCAINE HCL/EPINEPHRINE 1%-EPI 1:100,000 20 ML VIAL INFIL NR (12:30)
[2018-10-30 14:14] LABS: CREATINE KINASE 254 IU/L (39-308)
[2018-10-30 14:20] LABS: PLATELET ESTIMATE SLIGHTLY DECREASED
[2018-10-30] MEDS ORDERED: TETANUS, DIPHTHERIA, PERTUSSIS VAC/PF 0.5ML (>7YR OLD) IM ONE (15:15)
[2018-10-30 15:56] VITALS: BP 165/80
[2018-10-30 16:00] VITALS: BP 150/77
[2018-10-30 18:27] LABS: TOTAL IRON BINDING CAPACITY 108 ug/dL (250-450)
[2018-10-30] MEDS: SODIUM CHLORIDE 0.45% 1,000 ML IV SCH (20:27)
[2018-10-30] MEDS: AMLODIPINE 10MG TABLET PO SCH (20:27)
[2018-10-30] MEDS: FAMOTIDINE 20MG TABLET PO SCH (22:49)
[2018-10-30] MEDS: HYDROCODONE/ACETAMINOPHEN 5/325MG TABLET PO PRN (22:49)
[2018-10-31 00:17] VITALS: BP 160/72
[2018-10-31] MEDS: HYDROCODONE/ACETAMINOPHEN 5/325MG TABLET PO PRN ×4 (04:16→21:12)
[2018-10-31 04:58] VITALS: BP 151/74
[2018-10-31] MEDS: CEPHALEXIN 250MG CAPSULE PO SCH ×3 (06:20→21:11)
[2018-10-31] MEDS: SODIUM CHLORIDE 0.45% 1,000 ML IV SCH ×2 (06:20→21:27)
[2018-10-31 07:05] LABS: BASOPHILS % 0.3 % (0.0-2.0); EOSINOPHILS % 3.4 % (0.0-5.0); HEMATOCRIT. 24.9 % (42.0-52.0); HEMOGLOBIN. 8.4 g/dL (14.0-18.0); LYMPHOCYTES % 13.2 % (20.0-50.0); MEAN CORPUSCULAR HEMOGLOBIN 29.2 pg (28.0-32.0); MEAN CORPUSCULAR VOLUME 86.4 fL (80.0-94.0); MEAN PLATELET VOLUME 8.4 fl (7.4-10.4); MONOCYTES % 6.1 % (2.0-8.0); PLATELET 115 x1000/uL (130-400); RED BLOOD CELL COUNT 2.88 mill/uL (4.7-6.1); RED CELL DISTRIBUTION WIDTH 14.8 % (11.6-14.6)
[2018-10-31 07:15] LABS: CHLORIDE 120 mEq/L (98-107)
[2018-10-31] MEDS: BLOOD SUGAR DIAGNOSTIC STRIP TEST SCH ×4 (07:40→21:16)
[2018-10-31 08:00] VITALS: BP 151/78
[2018-10-31] MEDS: AMLODIPINE 10MG TABLET PO SCH (09:45)
[2018-10-31] MEDS: FAMOTIDINE 20MG TABLET PO SCH ×2 (09:45→21:12)
[2018-10-31] MEDS: INSULIN LISPRO 100 UNITS/ML SUBCUT SCH ×3 (12:16→21:16)
[2018-10-31] MEDS: DEXTROSE 50% WATER 50ML SYRINGE IV NR ×2 (12:23→13:10)
[2018-10-31] MEDS: SODIUM BICARBONATE 8.4% 1 MEQ/ML 50ML SYR IV NR ×2 (12:24→13:10)
[2018-10-31] MEDS: SODIUM POLYSTYRENE SULFONATE 15 G/60 ML BOT PO NR ×2 (12:24→13:10)
[2018-10-31] MEDS: INSULIN REGULAR (HUMULIN R) UD 100 UNITS/ML SYR IV NR ×2 (12:26→13:12)
[2018-10-31 12:30] LABS: CLARITY URINE CLEAR (CLEAR); COLOR URINE YELLOW (YELLOW); KETONES URINE NEGATIVE (NEGATIVE); LEUKOCYTE ESTERASE URINE NEGATIVE (NEGATIVE); NITRITE URINE NEGATIVE (NEGATIVE); OCCULT BLOOD URINE TRACE (NEGATIVE); PROTEIN URINE 2+ (NEGATIVE); SPECIFIC GRAVITY URINE 1.011 (1.005-1.030); UROBILINOGEN URINE 0.2 E.U./dL (0.2-1.0)
[2018-10-31 13:00] LABS: *AMPHETAMINES SCREEN URINE NEGATIVE (NEGATIVE)
[2018-10-31 13:01] LABS: *BARBITURATES SCREEN URINE NEGATIVE (NEGATIVE); *BENZODIAZEPINES SCREEN URINE NEGATIVE (NEGATIVE); *COCAINE SCREEN URINE PRESUMTIVE POSITIVE (NEGATIVE); CANNABINOID URINE SCREEN NEGATIVE (NEGATIVE); METHADONE URINE SCREEN NEGATIVE (NEGATIVE); OPIATES URINE SCREEN PRESUMTIVE POSITIVE (NEGATIVE); PHENCYCLIDINE URINE SCREEN NEGATIVE (NEGATIVE)
[2018-10-31 16:00] VITALS: BP 158/75
[2018-10-31] MEDS: ACETAMINOPHEN 325MG TABLET PO PRN (17:16)
[2018-10-31] MEDS ORDERED: VANCOMYCIN 1500MG in DEXTROSE 5% WATER 250ML IV NR (18:00)
[2018-10-31 20:00] VITALS: BP 177/88
[2018-10-31] MEDS: CLONIDINE 0.1MG TABLET PO PRN (21:14)
[2018-10-31] MEDS: CLARITHROMYCIN 500MG TABLET PO SCH (21:22)
[2018-10-31] MEDS: METRONIDAZOLE 500MG TABLET PO SCH (21:27)
[2018-11-01] VITALS (12 sets, daily range): BP systolic 130–159; BP diastolic 64–82
[2018-11-01] MEDS: METOCLOPRAMIDE HCL 10MG/2ML VIAL IV SCH ×3 (06:36→18:36)
[2018-11-01] MEDS: CEPHALEXIN 250MG CAPSULE PO SCH ×3 (06:36→22:40)
[2018-11-01] MEDS: BLOOD SUGAR DIAGNOSTIC STRIP TEST SCH ×4 (07:40→22:40)
[2018-11-01 07:42] LABS: BASOPHILS % 0.1 % (0.0-2.0); EOSINOPHILS % 4.2 % (0.0-5.0); HEMATOCRIT. 21.7 % (42.0-52.0); HEMOGLOBIN. 7.3 g/dL (14.0-18.0); LYMPHOCYTES % 15.4 % (20.0-50.0); MEAN CORPUSCULAR HEMOGLOBIN 28.5 pg (28.0-32.0); MEAN CORPUSCULAR VOLUME 85.5 fL (80.0-94.0); MEAN PLATELET VOLUME 8.1 fl (7.4-10.4); MONOCYTES % 8.5 % (2.0-8.0); NEUTROPHILS % 71.8 % (40.0-76.0); PLATELET 101 x1000/uL (130-400); RED BLOOD CELL COUNT 2.54 mill/uL (4.7-6.1); RED CELL DISTRIBUTION WIDTH 14.7 % (11.6-14.6)
[2018-11-01] MEDS: OMEPRAZOLE 20MG CAPSULE EXTENDED RELEASE PO SCH (08:00)
[2018-11-01] MEDS: METRONIDAZOLE 500MG TABLET PO SCH (08:02)
[2018-11-01] MEDS: INSULIN LISPRO 100 UNITS/ML SUBCUT SCH ×4 (08:10→22:43)
[2018-11-01 08:25] LABS: CHLORIDE 113 mEq/L (98-107)
[2018-11-01] MEDS: AMLODIPINE 10MG TABLET PO SCH (08:25)
[2018-11-01] MEDS: CLARITHROMYCIN 500MG TABLET PO SCH ×2 (08:26→22:40)
[2018-11-01 08:36] LABS: PHOSPHORUS 2.8 mg/dL (2.5-4.9)
[2018-11-01] MEDS ORDERED: VANCOMYCIN 750 MG PREMIX 150 ML IV SCH (10:00)
[2018-11-01 21:43] LABS: HEMATOCRIT 27.8 % (42.0-52.0); HEMOGLOBIN 9.5 g/dL (14.0-18.0)
[2018-11-01 21:56] LABS: PROTHROMBIN TIME 10.7 sec (9.6-11.0)
[2018-11-02] VITALS: BP 146/72
[2018-11-02] MEDS: METOCLOPRAMIDE HCL 10MG/2ML VIAL IV SCH ×3 (00:37→11:34)
[2018-11-02 04:00] VITALS: BP 171/91
[2018-11-02 06:33] LABS: BASOPHILS % 0.3 % (0.0-2.0); EOSINOPHILS % 3.3 % (0.0-5.0); HEMATOCRIT. 31.3 % (42.0-52.0); HEMOGLOBIN. 10.6 g/dL (14.0-18.0); LYMPHOCYTES % 14.4 % (20.0-50.0); MEAN CORPUSCULAR HEMOGLOBIN 28.6 pg (28.0-32.0); MEAN CORPUSCULAR VOLUME 84.8 fL (80.0-94.0); MEAN PLATELET VOLUME 8.1 fl (7.4-10.4); MONOCYTES % 6.2 % (2.0-8.0); NEUTROPHILS % 75.8 % (40.0-76.0); PLATELET 121 x1000/uL (130-400); RED CELL DISTRIBUTION WIDTH 15.3 % (11.6-14.6)
[2018-11-02 06:35] LABS: PROTHROMBIN TIME 10.4 sec (9.6-11.0)
[2018-11-02] MEDS: CEPHALEXIN 250MG CAPSULE PO SCH ×2 (06:36→13:20)
[2018-11-02] MEDS: INSULIN LISPRO 100 UNITS/ML SUBCUT SCH ×2 (06:39→13:10)
[2018-11-02] MEDS: BLOOD SUGAR DIAGNOSTIC STRIP TEST SCH ×2 (06:39→13:20)
[2018-11-02] MEDS: CLONIDINE 0.1MG TABLET PO PRN (06:40)
[2018-11-02 08:00] VITALS: BP 151/80
[2018-11-02] MEDS ORDERED: SODIUM POLYSTYRENE SULFONATE 15 G/60 ML BOT PO NR (08:00)
[2018-11-02] MEDS ORDERED: SODIUM CHLORIDE 0.45% 1,000 ML IV SCH (08:15)
[2018-11-02] MEDS: CLARITHROMYCIN 500MG TABLET PO SCH (08:23)
[2018-11-02] MEDS: OMEPRAZOLE 20MG CAPSULE EXTENDED RELEASE PO SCH (08:23)
[2018-11-02] MEDS: AMLODIPINE 10MG TABLET PO SCH (08:24)
[2018-11-02 09:54] LABS: HEPATITIS B SURFACE ANTIGEN NEGATIVE
[2018-11-02 12:00] VITALS: BP 147/91
[2018-11-02 16:00] VITALS: BP 165/92
[2018-11-02 16:10] VITALS: BP 135/79
[2018-11-04 08:07] LABS: A/G RATIO 1.1 (0.7-1.7); ALBUMIN 2.7 g/dL (2.9-4.4); ALPHA-1-GLOBULIN 0.2 g/dL (0.0-0.4); ALPHA-2-GLOBULIN 0.5 g/dL (0.4-1.0); BETA GLOBULIN 0.8 g/dL (0.7-1.3); GLOBULIN TOTAL 2.5 g/dL (2.2-3.9); M-SPIKE 0.2 g/dL (Not Observed); TOTAL PROTEIN SERUM 5.2 g/dL (6.0-8.5)
== END 2018-11-02 17:19 | disposition home health service (06) | DRG 629 ==
LOC: ER 12:38 → 7WST 16:55 → EDBEDREQ 16:57 → EDBEDREQTM 16:57 → CANRESERV 19:31 → ENRESERV 19:31 → EDBEDREQSVC 20:48 → EDBEDREQTM 20:48 → ENRESERV 10-30 02:11
PROVIDERS: ADMIT Family Medicine Adult Medicine; ATTEND Family Medicine Adult Medicine
PROC: 30233N1 Transfusion of Nonautologous Red Blood Cells into Peripheral Vein, Percutaneous Approach (ICD-10-PCS; 2018-10-29)
PROC: 0QBQ0ZZ Excision of Right Toe Phalanx, Open Approach (ICD-10-PCS; principal; 2018-10-30)
PROC: 02HV33Z Insertion of Infusion Device into Superior Vena Cava, Percutaneous Approach (ICD-10-PCS; 2018-11-02)
PROC: B5181ZA Fluoroscopy of Superior Vena Cava using Low Osmolar Contrast, Guidance (ICD-10-PCS; 2018-11-02)
PROC: B548ZZA Ultrasonography of Superior Vena Cava, Guidance (ICD-10-PCS; 2018-11-02)
DX: E11.621 Type 2 diabetes mellitus with foot ulcer (principal); L03.115 Cellulitis of right lower limb; E46 Unspecified protein-calorie malnutrition; E87.0 Hyperosmolality and hypernatremia; E87.1 Hypo-osmolality and hyponatremia; E87.2 Acidosis; M86.8X7 Other osteomyelitis, ankle and foot; R64 Cachexia; E11.69 Type 2 diabetes mellitus with other specified complication; D64.9 Anemia, unspecified; E11.42 Type 2 diabetes mellitus with diabetic polyneuropathy; E11.22 Type 2 diabetes mellitus with diabetic chronic kidney disease; F14.10 Cocaine abuse, uncomplicated; F17.210 Nicotine dependence, cigarettes, uncomplicated; N17.0 Acute kidney failure with tubular necrosis; D69.6 Thrombocytopenia, unspecified; E11.43 Type 2 diabetes mellitus with diabetic autonomic (poly)neuropathy; E86.0 Dehydration; E87.5 Hyperkalemia; N18.3 Chronic kidney disease, stage 3 (moderate); I12.9 Hypertensive chronic kidney disease with stage 1 through stage 4 chronic kidney disease, or unspecified chronic kidney disease; K31.84 Gastroparesis; Z53.20 Procedure and treatment not carried out because of patient's decision for unspecified reasons; M20.41 Other hammer toe(s) (acquired), right foot; L97.519 Non-pressure chronic ulcer of other part of right foot with unspecified severity; N40.0 Benign prostatic hyperplasia without lower urinary tract symptoms; S91.119A Laceration without foreign body of unspecified toe without damage to nail, initial encounter; X58.XXXA Exposure to other specified factors, initial encounter; Y93.89 Activity, other specified; Z91.19 Patient's noncompliance with other medical treatment and regimen; Z90.49 Acquired absence of other specified parts of digestive tract; Z68.24 Body mass index [BMI] 24.0-24.9, adult; Y92.89 Other specified places as the place of occurrence of the external cause; Z82.49 Family history of ischemic heart disease and other diseases of the circulatory system; Y99.8 Other external cause status; Z79.4 Long term (current) use of insulin; Z83.3 Family history of diabetes mellitus; Z87.19 Personal history of other diseases of the digestive system
CPT/HCPCS: 36415; 36573; 73630; 73721; 74018; 76770; 80048; 80076; 80202; 80305; 81003; 82270; 82550; 82607; 82728; 82746; 82962; 83036; 83540; 83550; 83735; 84100; 84132; 84155; 84165; 84484; 85014; 85018; 85049; 85384; 85651; 86140; 86803; 86850; 86900; 86920; 87015; 87045; 87070; 87075; 87077; 87340; 87427; 87449; 87493; 89055; 90715; 93005; 93306; 93970; 99285; C1725; J0696; J1650; J1815; J1885; J2270; J2765; J3370; J3490; J7040; J7060; P9016

== ENCOUNTER 2020-01-26 15:22 | Emergency (ER) | payer MEDICARE, MEDICAID ==
[~2020-01-26] VITALS: Ht 160 cm; Wt 65.9 kg
[~2020-01-26 15:22] MED LIST changes: +FERR236T3 MT; +LOSA1TAB40 MT
[2020-01-26 15:57] VITALS: BP 170/75
== END 2020-01-26 19:35 | disposition left against medical advice (07) ==
LOC: ER 15:39
DX: Z53.21 Procedure and treatment not carried out due to patient leaving prior to being seen by health care provider (principal); R07.9 Chest pain, unspecified; M79.602 Pain in left arm; M79.89 Other specified soft tissue disorders
CPT/HCPCS: 82962